=== PATIENT | male | born 1970 | race Caucasian/White ===

== ENCOUNTER 2023-07-10 14:08 | Emergency (ER) | payer OTHER ==
[~2023-07-10] VITALS: Ht 175.3 cm; Wt 74.8 kg
[2023-07-10 14:10] VITALS: BP_SYST 129; PULSE 66; RESP 18; TEMP 97.1; O2SAT 99
[2023-07-10] MEDS ORDERED: OLOP5DRO20 OP (16:22)
[2023-07-10] MEDS ORDERED: KETO5DRO OP (16:27)
[2023-07-10 16:36] VITALS: BP_SYST 129; PULSE 66; RESP 18; TEMP 97.1; O2SAT 99
== END 2023-07-10 16:36 | disposition home or self-care (01) ==
LOC: SED 14:08
DX: B30.9 Viral conjunctivitis, unspecified (principal); G43.909 Migraine, unspecified, not intractable, without status migrainosus; Z79.899 Other long term (current) drug therapy
CPT/HCPCS: 99282